=== PATIENT | female | born 1925 | race Caucasian/White ===

== ENCOUNTER → 2016-07-13 | Outpatient (CLI) | payer MEDICARE, BC ==
[~2016-07-13] MED LIST: CALTRATE PLUS T1 TAB PO; CITRUCEL PO; DARVOCET-N 1001 TAB PO; FAMOTIDINE PO; ZOCOR PO
--- NOTE | ~2016-07-13 | MY10 ---
[facility] A Service of [facility] RADIOLOGY TEXT RESULTS PATIENT: FRANCISCO HECK LOCATION: [facility] : [birth year] UNIT #: [id number] AGE: [address]: Contreras Brar MD SEX: F ORDER DR: [id number] [facility] [address] [place], [place] [address] [id number] O MR#: [id number] Acc #: [id number] NAME: FRANCISCO HECK : 1925 SEX: F STUDY DATE/TIME: 07/13/2016 9:13 UNIT: [facility] ROOM: STUDY DESCRIPTION: MY Mammogram Screen Uni Dig Rt Attending Physician: Contreras Brar Jr., M.D. Referring Physician: Contreras Brar Jr., M.D. Ordering Physician: Contreras Brar Jr., M.D. Primary Care Physician: Contreras Brar Jr., M.D. MEDICAL IMAGING REPORT This report is preliminary unless electronic signature is present EXAM Unilateral right digital screening mammogram, 07/13/2016, [facility]. HISTORY 89-year-old woman status post left mastectomy in 1991. Annual screen. COMPARISON Mammograms date to 04/15/2006 with most recent 07/11/2015. TECHNIQUE Digital imaging of the right breast was completed utilizing screening protocol. Review includes FDA-approved CAD device. FINDINGS Breast parenchyma is only partially fatty replaced and mildly heterogeneous. Occasional benign calcification is stable. Intramammary lymph node stable. There is no interval occurring mass. There are no suspicious microcalcifications and no architectural deformity. IMPRESSION Stable benign unilateral right mammogram. Status post left mastectomy. Annual screening is optional at this age. Patients over the age of 40 are entered into a reminder system with target due date for the next mammogram. A result letter will also be sent to the patient. BIRADS: 2 Benign finding. Dictated by... [facility] A Service of [facility] RADIOLOGY TEXT RESULTS PATIENT: FRANCISCO HECK LOCATION: [facility] : [birth year] UNIT #: [id number] AGE: [address]: Contreras Brar MD SEX: F ORDER DR: Angelito Núñez M.D. THIS IS AN ELECTRONICALLY VERIFIED REPORT Angelito Núñez M.D. at 07/13/2016 12:38 PM CARLOS/dany TD: 07/13/2016 10:13 JOB #: [id number] MEDICAL IMAGING REPORT Page 1 of 1 COPY
== END | disposition home or self-care (01) ==
LOC: CWCC 08:27
DX: Z12.31 Encounter for screening mammogram for malignant neoplasm of breast (principal); Z90.12 Acquired absence of left breast and nipple; Z85.3 Personal history of malignant neoplasm of breast
CPT/HCPCS: G0202